=== PATIENT | female | born 1975 | race Caucasian/White ===

== ENCOUNTER 2018-02-21 06:52 | Day surgery (SDC) | payer BC ==
[~2018-02-21 06:52] MED LIST: ACETAMINOPHEN 1,000 MG/100 ML BTL IV ONE; CEFAZOLIN 2 Gram 2 GM/50 ML BAG IVPB ONE
[2018-02-21] MEDS ORDERED: *PACU ONLY* KETAMINE HCL 10 MG/ML (20ML) VIAL IV ONE (06:53)
[2018-02-21] MEDS ORDERED: ACETAMINOPHEN W/ CODEINE 300MG/30MG TABLET PO ONE (06:53)
[2018-02-21] MEDS ORDERED: PROPOFOL 10 MG/ML VIAL IV ONE (06:53)
[2018-02-21] MEDS ORDERED: ALFENTANIL HCL 500 MCG/1ML, 2ML AMP IV ONE (06:53)
[2018-02-21] MEDS ORDERED: MIDAZOLAM HCL 2MG/2ML VIAL IV ONE (06:53)
[2018-02-21] MEDS ORDERED: LIDOCAINE 1% W/EPI 1:200,000 MPF 30ML SQ ONE (06:53)
[2018-02-21] MEDS ORDERED: LIDOCAINE 2% MDV (20MG/ML) 20ML VIAL IV ONE (06:53)
--- NOTE | 2018-02-21 18:25 | Operative Note ---
DATE OF SURGERY: 02/21/18 PREOPERATIVE DIAGNOSIS: LEFT CARPAL TUNNEL SYNDROME. POSTOPERATIVE DIAGNOSIS: LEFT CARPAL TUNNEL SYNDROME. OPERATION: LEFT CARPAL TUNNEL RELEASE. SURGEON: KRYS ADORNO M.D. ANESTHESIA: LMA, LOCAL. COMPLICATIONS: NONE. ESTIMATED BLOOD LOSS: MINIMAL. OPERATIVE FINDINGS: Thick carpal tunnel ligament. Intact nerve. INDICATION FOR OPERATION: A 42-year-old female who has had bilateral chronic carpal tunnel symptoms for several years, failed nonoperative treatment, and she is going to be scheduled for release for both, starting with the left first. I explained the risks and benefits of surgery in detail for the diagnosis and procedures including but not limited to infection, nerve injury, vessel injury, persistent pain, stiffness, numbness and tingling in her hand, recurrence of carpal tunnel symptoms, and need for further procedures. All of her questions were answered, rehab and healing course were outlined and she agreed to proceed. PROCEDURE: The patient brought to the O.R. and placed in the supine position after anesthesia was given. Her left lower extremity and hand were prepped and draped in sterile fashion. Prepped again with ChloraPrep after it was draped. Intraoperative time-out was performed. Next, an incision was marked over the thenar crease after infiltrating 0.5% Marcaine with Epinephrine. The skin and subcutaneous tissue were dissected down to the superficial palmar fascia. The superficial palmar fascia was incised longitudinally. The distal edge of the transverse carpal ligament was identified and inserted a cervical Forrest dilator there to isolate the median nerve out of the way and started resecting the transverse carpal ligament from distal to proximal with a 15 blade proximally then we flexed the wrist, brought in a Cheri retractor and under direct visualization used tenotomy scissors to carefully release the remainder of the ligament on the ulnar side of the ligament proximally to the superficial flexor retinaculum. The procedure was complete now, probed, the release was thorough, inspect the nerves intact, irrigated, cauterized any subcutaneous bleeders and then closed with 3-0 nylon and inject more of 0.5% Marcaine with Epinephrine. The patient tolerated the procedures well. No intraoperative complications. All sponge, needle, and blade counts correct. Recovery room stable, neurovascularly intact. She will be discharged as an outpatient with dressing in three days, and follow-up in two weeks. cc: Dr. Bean Marsh JOB NUMBER: [id number] MTDD
== END 2018-02-21 10:12 | disposition home health service (06) ==
LOC: SUR 06:52
PROVIDERS: ATTEND Orthopaedic Surgery
DX: G56.02 Carpal tunnel syndrome, left upper limb (principal)
CPT/HCPCS: 64721; 01810; J0690